=== PATIENT | female | born 1995 | race Caucasian/White ===

== ENCOUNTER 2018-02-14 03:25 | Inpatient (IN) | payer BC, OTHER ==
[~2018-02-14] VITALS: Ht 175.3 cm; Wt 67.4 kg
[~2018-02-14 03:25] MED LIST: Z.0.NO CURRENT MEDS
[2018-02-14 03:41] VITALS: BP 106/64; PULSE 85; RESP 18; TEMP 97; O2SAT 97
[2018-02-14 04:06] VITALS: BP 123/77; PULSE 90; RESP 12; TEMP 98.3; O2SAT 100
--- NOTE | 2018-02-14 04:28 | PD ---
HPI Chief Complaint: Alcohol/Drug Intoxication Time Seen by Provider: 04:04 Travel History International Travel<30 days: No Contact w/Intl Traveler<30days: No Traveled to known affect area: No History of Present Illness HPI 22-year-old white female presents emergency department under Jack act by PD. Patient states that she just moved back to [facility] over the last few days from [place]. She had been living in [place]. She had planned on moving back to [place] to be with her boyfriend and her mother. The mother states that she had not been answering her phone. She was concerned because she has a history of depression in the past and she had found notebooks depicting suicidal information as well as homicidal information. Patient states that she had written this down over a year ago and the mother had just found it. She denies any suicidal homicidal ideation. She states that she had left her mom's house in [place] to go to [facility] to meet up with her boyfriend. She denies any drugs. She admits to alcohol and tobacco. Denies . She states that she has been compliant with her medications. [facility] Past Medical History Narrative Medical Depression Hx Anticoagulant Therapy: No Cardiovascular Problems: No Chemotherapy: No Cerebrovascular Accident: No Diabetes: No Diminished Hearing: No Respiratory: No Immunizations Current: No Tetanus Vaccination: < 5 Years ?: Not Past Surgical History Surgical History: No Previous Surgery Hysterectomy: No Social History Alcohol Use: Yes (OCCASIONAL) Tobacco Use: Yes (OCCASIONAL) Substance Use: No Allergies-Medications (Allergen,Severity, Reaction): Coded Allergies: No Known Allergies (Verified , 01/05/13) Reported Meds & Prescriptions Reported Meds & Active Scripts Active Reported No Current Meds (Miscellaneous Medication) [facility] Review of Systems General / Constitutional: No: Fever Eyes: No: Visual changes HENT: No: Headaches Cardiovascular: No: Chest Pain or Discomfort Respiratory: No: Shortness of Breath Gastrointestinal: No: Abdominal Pain Genitourinary: No: Dysuria Musculoskeletal: No: Pain Skin: No Rash Neurologic: No: Weakness Psychiatric: No: Anxiety, Depression, Suicidal Ideations, Disorder of Thought, Mood Disorder, Substance Abuse, Homicidal Ideation Endocrine: No: Polydipsia Hematologic/Lymphatic: No: Easy Bruising Physical Exam Narrative GENERAL: Well-nourished, well-developed patient. SKIN: Warm and dry. HEAD: Normocephalic and atraumatic. EYES: No scleral icterus. No injection or drainage. ENT: No nasal drainage noted. Mucous membranes pink. Airway patent. NECK: Supple, trachea midline. Moves head freely without obvious discomfort. CARDIOVASCULAR: Regular rate and rhythm without murmurs, gallops, or rubs. RESPIRATORY: Breath sounds equal bilaterally. No accessory muscle use. GASTROINTESTINAL: Abdomen soft, non-tender, nondistended. EXTREMITIES: No cyanosis or edema. BACK: Nontender without obvious deformity. No CVA tenderness. NEURO: Patient is alert and oriented. no sensorimotor deficits. Nonfocal. Normal speech. PSYCH: No delusions. No auditory or visual hallucinations. Data Data Last Documented VS Vital Signs Date Time Temp Pulse Resp B/P (MAP) Pulse Ox O2 Delivery O2 Flow Rate FiO2 02/14/18 03:41 97.0 85 18 106/64 (78) 97 Orders Orders Complete Blood Count With Diff (02/14/18 03:46) Comprehensive Metabolic Panel (02/14/18 03:46) Psych Screen (02/14/18 03:46) Diet Regular Basic (02/14/18 Breakfast) Drug Screen, Random Urine (02/14/18 03:46) Alcohol (Ethanol) (02/14/18 03:46) Valproic Acid (Depakene) (02/14/18 03:46) Labs Laboratory Tests Test 02/14/18 03:35 White Blood Count 5.6 TH/MM3 Red Blood Count 4.38 MIL/MM3 Hemoglobin 13.4 GM/DL Hematocrit 38.8 % Mean Corpuscular Volume 88.6 FL Mean Corpuscular Hemoglobin 30.6 PG Mean Corpuscular Hemoglobin Concent 34.5 % Red Cell Distribution Width 13.0 % Platelet Count 275 TH/MM3 Mean Platelet Volume 7.8 FL Neutrophils (%) (Auto) 65.2 % Lymphocytes (%) (Auto) 25.3 % Monocytes (%) (Auto) 7.0 % Eosinophils (%) (Auto) 1.7 % Basophils (%) (Auto) 0.8 % Neutrophils # (Auto) 3.7 TH/MM3 Lymphocytes # (Auto) 1.4 TH/MM3 Monocytes # (Auto) 0.4 TH/MM3 Eosinophils # (Auto) 0.1 TH/MM3 Basophils # (Auto) 0.0 TH/MM3 CBC Comment DIFF FINAL Differential Comment Blood Urea Nitrogen 10 MG/DL Creatinine 0.62 MG/DL Random Glucose 83 MG/DL Total Protein 7.3 GM/DL Albumin 4.4 GM/DL Calcium Level 9.0 MG/DL Alkaline Phosphatase 92 U/L Aspartate Amino Transf (AST/SGOT) 8 U/L Alanine Aminotransferase (ALT/SGPT) 19 U/L Total Bilirubin 0.6 MG/DL Sodium Level 142 MEQ/L Potassium Level 3.6 MEQ/L Chloride Level 105 MEQ/L Carbon Dioxide Level 26.4 MEQ/L Anion Gap 11 MEQ/L Estimat Glomerular Filtration Rate 118 ML/MIN Valproic Acid (Depakene) Level LESS THAN 3 MCG/ML Ethyl Alcohol Level LESS THAN 3 MG/DL MDM Medical Decision Making Medical Screen Exam Complete: Yes Emergency Medical Condition: Yes Medical Record Reviewed: Yes Interpretation(s) Laboratory Tests Test 02/14/18 03:35 White Blood Count 5.6 TH/MM3 Red Blood Count 4.38 MIL/MM3 Hemoglobin 13.4 GM/DL Hematocrit 38.8 % Mean Corpuscular Volume 88.6 FL Mean Corpuscular Hemoglobin 30.6 PG Mean Corpuscular Hemoglobin Concent 34.5 % Red Cell Distribution Width 13.0 % Platelet Count 275 TH/MM3 Mean Platelet Volume 7.8 FL Neutrophils (%) (Auto) 65.2 % Lymphocytes (%) (Auto) 25.3 % Monocytes (%) (Auto) 7.0 % Eosinophils (%) (Auto) 1.7 % Basophils (%) (Auto) 0.8 % Neutrophils # (Auto) 3.7 TH/MM3 Lymphocytes # (Auto) 1.4 TH/MM3 Monocytes # (Auto) 0.4 TH/MM3 Eosinophils # (Auto) 0.1 TH/MM3 Basophils # (Auto) 0.0 TH/MM3 CBC Comment DIFF FINAL Differential Comment Blood Urea Nitrogen 10 MG/DL Creatinine 0.62 MG/DL Random Glucose 83 MG/DL Total Protein 7.3 GM/DL Albumin 4.4 GM/DL Calcium Level 9.0 MG/DL Alkaline Phosphatase 92 U/L Aspartate Amino Transf (AST/SGOT) 8 U/L Alanine Aminotransferase (ALT/SGPT) 19 U/L Total Bilirubin 0.6 MG/DL Sodium Level 142 MEQ/L Potassium Level 3.6 MEQ/L Chloride Level 105 MEQ/L Carbon Dioxide Level 26.4 MEQ/L Anion Gap 11 MEQ/L Estimat Glomerular Filtration Rate 118 ML/MIN Valproic Acid (Depakene) Level LESS THAN 3 MCG/ML Ethyl Alcohol Level LESS THAN 3 MG/DL Differential Diagnosis MDM: High Differential diagnoses: Schizophrenia, schizoaffective disorder, bipolar, anxiety, depression, adjustment reaction, mood disorder NOS, ODD, depressive disorder NOS, dementia, dementia with agitation, psychosis NOS, substance induced mood disorder, DMDD, Asperger syndrome, infection,electrolyte abnormality, malingering. Narrative Course Mental health screening discussed with the patient. Psychiatric screen ordered. The patient has been medically cleared. This is medical clearance for psychiatric admission Diagnosis Primary Impression: Medical clearance for psychiatric admission Disposition: 20 SENT TO MED EXAMINR Condition: Stable Ruben Solis Feb 14, 2018 04:28
[2018-02-14 04:43] LABS: AUTOMATED NEUTROPHIL # 3.7 TH/MM3 (1.8-7.7); BASOPHIL % 0.8 % (0.0-2.0); EOSINOPHIL # 0.1 TH/MM3 (0-0.4); EOSINOPHIL % 1.7 % (0.0-4.0); HEMATOCRIT 38.8 % (35.0-46.0); HEMOGLOBIN 13.4 GM/DL (11.6-15.3); LYMPH % 25.3 % (9.0-44.0); LYMPHOCYTE # 1.4 TH/MM3 (1.0-4.8); MEAN CELL VOLUME 88.6 FL (80.0-100.0); MEAN CORPUSCULAR HEMOGLOBIN 30.6 PG (27.0-34.0); MEAN CORPUSCULAR HGB CONC 34.5 % (32.0-36.0); MEAN PLATELET VOLUME 7.8 FL (7.0-11.0); MONOCYTE # 0.4 TH/MM3 (0-0.9); NEUT % 65.2 % (16.0-70.0); PLATELET COUNT 275 TH/MM3 (150-450); RED BLOOD COUNT 4.38 MIL/MM3 (4.00-5.30); WHITE BLOOD COUNT 5.6 TH/MM3 (4.0-11.0)
[2018-02-14 05:02] LABS: ALBUMIN 4.4 GM/DL (3.4-5.0); AST (GOT) 8 U/L (15-37); BICARBONATE 26.4 MEQ/L (21.0-32.0); BLOOD UREA NITROGEN 10 MG/DL (7-18); CHLORIDE 105 MEQ/L (98-107); CREATININE 0.62 MG/DL (0.50-1.00); GLOMERULAR FILTRATION RATE 118 ML/MIN (>89); GLUCOSE,RANDOM 83 MG/DL (74-106); SODIUM (NA) 142 MEQ/L (136-145)
[2018-02-14 05:03] LABS: ALT (GPT) 19 U/L (10-53)
[2018-02-14 05:05] LABS: ALKALINE PHOSPHATASE 92 U/L (45-117); TOTAL BILIRUBIN ADULT 0.6 MG/DL (0.2-1.0); TOTAL PROTEIN 7.3 GM/DL (6.4-8.2)
[2018-02-14] MEDS ORDERED: MAGNESIUM HYDROXIDE SUSP 30 ML CUP PO PRN (09:30)
[2018-02-14] MEDS ORDERED: LORazepam 2 MG/ML VIAL IM PRN ×2 (09:30)
[2018-02-14] MEDS ORDERED: ACETAMINOPHEN 325 MG TAB PO PRN (09:30)
[2018-02-14] MEDS ORDERED: LORazepam 0.5 MG TAB PO PRN (09:30)
[2018-02-14] MEDS ORDERED: ALUMINUM/MAGNESIUM/SIMETH 30 ML CUP PO PRN (09:30)
[2018-02-14] MEDS: NICOTINE 21 MG/24 HR PATCH T-DERMAL SCH (09:30)
[2018-02-14] MEDS ORDERED: LORazepam 1 MG TAB PO PRN (09:30)
[2018-02-14 11:32] VITALS: BP 106/65; PULSE 76; RESP 16; TEMP 97.5; O2SAT 98
[2018-02-14] MEDS: levETIRAcetam 500 MG TAB PO SCH ×2 (12:35→20:40)
[2018-02-14] MEDS: PALIPERIDONE ER 3 MG TAB PO SCH (12:35)
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
[2018-02-14 17:39] VITALS: BP 99/54; PULSE 79; RESP 18; TEMP 97.7; O2SAT 100
[2018-02-14] MEDS: REMOVE OLD NICODERM (NICOTINE) PATCH T-DERMAL SCH (20:12)
[2018-02-14 22:41] VITALS: BP 103/58; PULSE 72; RESP 18; O2SAT 100
[2018-02-15 06:17] VITALS: BP 103/56; PULSE 77; RESP 18; TEMP 98; O2SAT 100
[2018-02-15] MEDS: levETIRAcetam 500 MG TAB PO SCH ×2 (08:32→20:36)
[2018-02-15] MEDS: PALIPERIDONE ER 3 MG TAB PO SCH (08:32)
[2018-02-15] MEDS: NICOTINE 21 MG/24 HR PATCH T-DERMAL SCH (08:37)
[2018-02-15 09:44] LABS: BICARBONATE 25.4 MEQ/L (21.0-32.0); BLOOD UREA NITROGEN 9 MG/DL (7-18); CALCIUM 8.7 MG/DL (8.5-10.1); CHLORIDE 108 MEQ/L (98-107); CREATININE 0.71 MG/DL (0.50-1.00); GLOMERULAR FILTRATION RATE 101 ML/MIN (>89); GLUCOSE,RANDOM 81 MG/DL (74-106); SODIUM (NA) 144 MEQ/L (136-145); TRIGLYCERIDES 56 MG/DL (42-150)
[2018-02-15 09:51] LABS: CHOLESTEROL 131 MG/DL (120-200); CHOLESTEROL/ HDL RATIO 1.99 RATIO; HDL CHOLESTEROL 65.6 MG/DL (40.0-60.0); LDL CHOLESTEROL 54 MG/DL (0-99)
--- NOTE | 2018-02-15 14:41 | HHI.PYPN ---
Subjective Remarks Patient initially seen by Dr. Mack. Initial H&P done by him that reviewed and agreed with. I have finished the initial psychiatric admission template in the review of med reconciliation. Dr. aMck is done first opinion petition supporting Guero act. I agree patient meets criteria for involuntary psychiatric hospitalization thus I will cosign second opinion petition supporting Guero act. Patient seen by me with nurse Lily patient alert oriented though somewhat confused vigilant in the time giving contradictory statements. She is vague about auditory hallucinations. She is vague about continued suicidality. The stomach feel she does meet Jack criteria. Review of Systems Except as stated in HPI: all other systems reviewed are Neg Mental Status Examination Appearance: Appropriate Consciousness: Alert Orientation: x4 Motor Activity: Normal gait Speech: Unremarkable Language: Adequate Fund of Knowledge: Adequate Attention and Concentration: Adequate Memory: Unremarkable Mood: Oppositional, Irritable Affect: Flat Thought Process & Associations: Goal directed Thought Content: Bizarre thinking, Thought blocking, Delusional Hallucination Type: None Delusion Type: Paranoid Suicidal Ideation: No Suicidal Plan: No Suicidal Intention: No Homicidal Ideation: No Homicidal Plan: No Homicidal Intention: No Insight: Poor Judgment: Poor Results Labs Test 02/15/18 05:29 Blood Urea Nitrogen 9 MG/DL Creatinine 0.71 MG/DL Random Glucose 81 MG/DL Calcium Level 8.7 MG/DL Sodium Level 144 MEQ/L Potassium Level 3.7 MEQ/L Chloride Level 108 MEQ/L Carbon Dioxide Level 25.4 MEQ/L Anion Gap 11 MEQ/L Estimat Glomerular Filtration Rate 101 ML/MIN Triglycerides Level 56 MG/DL Cholesterol Level 131 MG/DL LDL Cholesterol 54 MG/DL HDL Cholesterol 65.6 MG/DL Cholesterol/HDL Ratio 1.99 RATIO Vitals/IOs Vital Signs Date Time Temp Pulse Resp B/P (MAP) Pulse Ox O2 Delivery O2 Flow Rate FiO2 02/15/18 06:17 98.0 77 18 103/56 (72) 100 Assessment & Plan Problem List: (1) Unspecified psychosis ICD Codes: F29 - Unspecified psychosis not due to a substance or known physiological condition Assessment & Plan Estimated LOS: 5-7 days patient meets criteria as cosign second opinion petition for Dr. Mack, we will continue the Invega orally. Justification for Cont. Inpt. At this time patient would decompensate a place a lower level of care Discharge Planning To be determined Misha Bellamy MD Feb 15, 2018 14:41
[2018-02-15 15:59] LABS: HEMOGLOBIN A1C 4.5 % (4.3-6.0)
[2018-02-15 17:47] VITALS: BP 95/54; PULSE 88; RESP 17; TEMP 97.8; O2SAT 100
[2018-02-15] MEDS: REMOVE OLD NICODERM (NICOTINE) PATCH T-DERMAL SCH (21:00)
[2018-02-15] MEDS ORDERED: diphenhydrAMINE HCL 50 MG CAP PO PRN (21:00)
[2018-02-16 06:25] VITALS: BP 116/59; PULSE 100; RESP 17; TEMP 97.7; O2SAT 98
[2018-02-16] MEDS: NICOTINE 21 MG/24 HR PATCH T-DERMAL SCH (09:00)
[2018-02-16] MEDS: levETIRAcetam 500 MG TAB PO SCH ×2 (09:00→20:27)
[2018-02-16] MEDS: PALIPERIDONE ER 3 MG TAB PO SCH (09:00)
--- NOTE | 2018-02-16 13:56 | HHI.PYPN ---
Subjective Remarks Patient was seen and case discussed with nursing. After initially having a long debate about the reason for her admission and her mother patient began with various delusional content. Patient has bizarre roman catholic beliefs where she is the "Divine feminine" and she has a [place]. This is an entity that is a match for her. She then says her father is an chato and a Pharoah from [place]. Patient says that he continues to talk to her. Mental Status Examination Appearance: Appropriate Consciousness: Alert Orientation: x4 Motor Activity: Normal gait Speech: Unremarkable Language: Adequate Fund of Knowledge: Adequate Attention and Concentration: Adequate Memory: Unremarkable Mood: Oppositional, Irritable Affect: Flat Thought Process & Associations: Goal directed Thought Content: Bizarre thinking, Thought blocking, Delusional Hallucination Type: Auditory (Her father) Delusion Type: Bizarre, Paranoid Suicidal Ideation: No Suicidal Plan: No Suicidal Intention: No Homicidal Ideation: No Homicidal Plan: No Homicidal Intention: No Insight: Poor Judgment: Poor Results Vitals/IOs Vital Signs Date Time Temp Pulse Resp B/P (MAP) Pulse Ox O2 Delivery O2 Flow Rate FiO2 02/16/18 06:25 97.7 100 17 116/59 (43) 98 Assessment & Plan Problem List: (1) Unspecified psychosis ICD Codes: F29 - Unspecified psychosis not due to a substance or known physiological condition Assessment & Plan Patient would decompensate in a less restrictive setting Justification for Cont. Inpt. Continue current treatment plan Jose Spear DO Feb 16, 2018 13:56
[2018-02-16 17:58] VITALS: BP 114/67; PULSE 90; RESP 18; TEMP 97.3; O2SAT 97
[2018-02-16] MEDS: REMOVE OLD NICODERM (NICOTINE) PATCH T-DERMAL SCH (20:27)
[2018-02-17 06:00] VITALS: BP 95/58; PULSE 92; RESP 17; TEMP 97.7; O2SAT 98
[2018-02-17] MEDS: NICOTINE 21 MG/24 HR PATCH T-DERMAL SCH (09:00)
[2018-02-17] MEDS: PALIPERIDONE ER 3 MG TAB PO SCH (09:11)
[2018-02-17] MEDS: levETIRAcetam 500 MG TAB PO SCH ×2 (09:11→21:04)
--- NOTE | 2018-02-17 12:07 | HHI.PYPN ---
Subjective Remarks Patient was seen and case discussed with nursing. Patient had a productive meeting with her mother yesterday. She appears less focused and angry at her. She describes future plans to move to [place] and get a job. Patient is grandiose and appears elated. Continues to have bizarre orthodox believes where her dad is a Pharoah. However, these bizarre delusions have to be elicited. She denies suicidal or homicidal ideation intent or plan Mental Status Examination Appearance: Appropriate Consciousness: Alert Orientation: x4 Motor Activity: Normal gait Speech: Unremarkable Language: Adequate Fund of Knowledge: Adequate Attention and Concentration: Adequate Memory: Unremarkable Mood: Oppositional, Irritable Affect: Other (Elated) Thought Process & Associations: Goal directed Thought Content: Bizarre thinking, Delusional Hallucination Type: Auditory (Her father) Delusion Type: Bizarre, Paranoid Suicidal Ideation: No Suicidal Plan: No Suicidal Intention: No Homicidal Ideation: No Homicidal Plan: No Homicidal Intention: No Insight: Poor Judgment: Poor Results Labs Test 02/16/18 21:29 Urine Opiates Screen NEG Urine Barbiturates Screen NEG Urine Amphetamines Screen NEG Urine Benzodiazepines Screen NEG Urine Cocaine Screen NEG Urine Cannabinoids Screen NEG Vitals/IOs Vital Signs Date Time Temp Pulse Resp B/P (MAP) Pulse Ox O2 Delivery O2 Flow Rate FiO2 02/17/18 06:00 97.7 92 17 95/58 (70) 98 Assessment & Plan Problem List: (1) Unspecified psychosis ICD Codes: F29 - Unspecified psychosis not due to a substance or known physiological condition Assessment & Plan Continue current treatment plan Justification for Cont. Inpt. Patient would decompensate in a less restrictive setting Jose Spear DO Feb 17, 2018 12:07
[2018-02-17 17:20] VITALS: BP 88/54; PULSE 69; RESP 17; TEMP 98.2
[2018-02-17] MEDS: REMOVE OLD NICODERM (NICOTINE) PATCH T-DERMAL SCH (21:00)
[2018-02-18 06:27] VITALS: BP 95/59; PULSE 84; RESP 18; TEMP 97.4; O2SAT 96
[2018-02-18] MEDS: NICOTINE 21 MG/24 HR PATCH T-DERMAL SCH (09:00)
[2018-02-18] MEDS: PALIPERIDONE ER 3 MG TAB PO SCH (09:04)
[2018-02-18] MEDS: levETIRAcetam 500 MG TAB PO SCH ×2 (09:04→21:00)
--- NOTE | 2018-02-18 11:08 | HHI.PYPN ---
Subjective Remarks Patient is seen today with nurse Lily, chart reviewed, patient compliant medications patient continues somewhat disorganized and loose vaguely delusional and grandiose in his type of the leg. She appears as somewhat conflictual ideation related to her mother. We will increase in Aragon 6 mg daily Review of Systems Except as stated in HPI: all other systems reviewed are Neg Mental Status Examination Appearance: Appropriate Consciousness: Alert Orientation: x4 Motor Activity: Normal gait Speech: Unremarkable Language: Adequate Fund of Knowledge: Adequate Attention and Concentration: Adequate Memory: Unremarkable Mood: Oppositional, Irritable Affect: Other (Elated) Thought Process & Associations: Goal directed Thought Content: Bizarre thinking, Delusional Hallucination Type: Auditory (Her father) Delusion Type: Bizarre, Paranoid Suicidal Ideation: No Suicidal Plan: No Suicidal Intention: No Homicidal Ideation: No Homicidal Plan: No Homicidal Intention: No Insight: Poor Judgment: Poor Results Vitals/IOs Vital Signs Date Time Temp Pulse Resp B/P (MAP) Pulse Ox O2 Delivery O2 Flow Rate FiO2 02/18/18 06:27 97.4 84 18 95/59 (71) 96 Assessment & Plan Problem List: (1) BRIEF PSYCHOTIC DISORDER ICD Codes: F23 - BRIEF PSYCHOTIC DISORDER Assessment & Plan Estimated LOS: days patient continues psychotic Justification for Cont. Inpt. At this time patient would decompensate if placed in a lower level of care Misha Bellamy MD Feb 18, 2018 11:08
[2018-02-18 18:27] VITALS: BP 113/55; PULSE 71; RESP 16; TEMP 97.6; O2SAT 100
[2018-02-18] MEDS: REMOVE OLD NICODERM (NICOTINE) PATCH T-DERMAL SCH (21:00)
[2018-02-19 05:57] VITALS: BP 98/50; PULSE 68; RESP 16; TEMP 97; O2SAT 99
[2018-02-19] MEDS: levETIRAcetam 500 MG TAB PO SCH ×2 (08:15→21:04)
[2018-02-19] MEDS: PALIPERIDONE ER 3 MG TAB PO SCH (08:15)
[2018-02-19] MEDS: NICOTINE 21 MG/24 HR PATCH T-DERMAL SCH (08:16)
--- NOTE | 2018-02-19 15:27 | HHI.PYPN ---
Subjective Remarks Patient seen in her room with nurse Claribel, chart reviewed, patient compliant medication. Patient continues somewhat diffusely confused with vague thought blocking, still very little insight into her disease. Staff states they have talked with patient's mother who stated patient has shown noncompliance with medications once discharged from the hospital. We will need to consider possible addition Review of Systems Except as stated in HPI: all other systems reviewed are Neg Mental Status Examination Appearance: Appropriate Consciousness: Alert Orientation: x4 Motor Activity: Normal gait Speech: Unremarkable Language: Adequate Fund of Knowledge: Adequate Attention and Concentration: Adequate Memory: Unremarkable Mood: Oppositional, Irritable Affect: Other (Elated) Thought Process & Associations: Goal directed Thought Content: Bizarre thinking, Delusional Hallucination Type: Auditory (Her father) Delusion Type: Bizarre, Paranoid Suicidal Ideation: No Suicidal Plan: No Suicidal Intention: No Homicidal Ideation: No Homicidal Plan: No Homicidal Intention: No Insight: Poor Judgment: Poor Results Vitals/IOs Vital Signs Date Time Temp Pulse Resp B/P (MAP) Pulse Ox O2 Delivery O2 Flow Rate FiO2 02/19/18 05:57 97.0 68 16 98/50 (66) 99 Intake and Output 02/19/18 02/19/18 02/19/18 07:59 15:59 23:59 Intake Total 360 ml Balance 360 ml Assessment & Plan Problem List: (1) BRIEF PSYCHOTIC DISORDER ICD Codes: F23 - BRIEF PSYCHOTIC DISORDER Assessment & Plan Estimated LOS: days patient remains psychotic and somewhat delusional, complaint medications Justification for Cont. Inpt. At this time patient would decompensate a place to a lower level of care Discharge Planning To be determined Request HC Surrog/Guard Advoc?: No Misha Bellamy MD Feb 19, 2018 15:27
[2018-02-19 18:26] VITALS: BP 98/56; PULSE 77; RESP 17; TEMP 97.9; O2SAT 98
[2018-02-19] MEDS: REMOVE OLD NICODERM (NICOTINE) PATCH T-DERMAL SCH (21:00)
[2018-02-20 05:54] VITALS: BP 103/53; PULSE 90; RESP 16; TEMP 97.8; O2SAT 99
[2018-02-20] MEDS: levETIRAcetam 500 MG TAB PO SCH ×2 (08:34→20:55)
[2018-02-20] MEDS: NICOTINE 21 MG/24 HR PATCH T-DERMAL SCH (08:35)
[2018-02-20] MEDS: PALIPERIDONE ER 3 MG TAB PO SCH (08:35)
--- NOTE | 2018-02-20 12:58 | HHI.PYPN ---
Subjective Remarks Patient seen in her room with nurse Rimma, chart reviewed, patient complaint medications. Patient calm and focused with me patient scheduled for Jack court tomorrow. At this time patient has the capacity to sign voluntary will lift Jack, patient signed voluntary. While patient continues somewhat vigilant she is overall pleasant no behavior problem for now continue treatment Review of Systems Except as stated in HPI: all other systems reviewed are Neg Mental Status Examination Appearance: Appropriate Consciousness: Alert Orientation: x4 Motor Activity: Normal gait Speech: Unremarkable Language: Adequate Fund of Knowledge: Adequate Attention and Concentration: Adequate Memory: Unremarkable Mood: Oppositional, Irritable Affect: Other (Elated) Thought Process & Associations: Goal directed Thought Content: Bizarre thinking, Delusional Hallucination Type: Auditory (Her father) Delusion Type: Bizarre, Paranoid Suicidal Ideation: No Suicidal Plan: No Suicidal Intention: No Homicidal Ideation: No Homicidal Plan: No Homicidal Intention: No Insight: Poor Judgment: Poor Results Vitals/IOs Vital Signs Date Time Temp Pulse Resp B/P (MAP) Pulse Ox O2 Delivery O2 Flow Rate FiO2 02/20/18 05:54 97.8 90 16 103/53 (70) 99 Assessment & Plan Problem List: (1) BRIEF PSYCHOTIC DISORDER ICD Codes: F23 - BRIEF PSYCHOTIC DISORDER Assessment & Plan Estimated LOS: days patient somewhat calmer more focused today now denies voices or visions. Appears less distracted. At this time for patient has capacity will lift Jack act low patient signed voluntary Justification for Cont. Inpt. At this time patient would decompensate a place to the lower level of care Discharge Planning To be determined Request HC Surrog/Guard Advoc?: No Misha Bellamy MD Feb 20, 2018 12:58
[2018-02-20 15:32] VITALS: BP 96/52; PULSE 82; RESP 18; TEMP 97.9; O2SAT 99
[2018-02-20] MEDS: hydrOXYzine HCL 50 MG TAB PO PRN (18:22)
[2018-02-20] MEDS: REMOVE OLD NICODERM (NICOTINE) PATCH T-DERMAL SCH (20:55)
[2018-02-21 06:00] VITALS: BP 88/55; PULSE 86; RESP 16; TEMP 97.7; O2SAT 100
[2018-02-21] MEDS: PALIPERIDONE ER 3 MG TAB PO SCH (09:00)
[2018-02-21] MEDS: levETIRAcetam 500 MG TAB PO SCH ×2 (09:00→21:37)
[2018-02-21] MEDS: NICOTINE 21 MG/24 HR PATCH T-DERMAL SCH (09:00)
--- NOTE | 2018-02-21 16:33 | HHI.PYPN ---
Subjective Remarks Patient is seen in her room with nurse Herber, chart reviewed, patient compliant medications, patient discussed with nurse. Patient calm cooperative pleasant with me, denies suicidality homicidality voices or visions. States she has plans to work with the mother to get her own apartment the locally or perhaps down towards [facility]. Patient states she wishes to be discharged and will be willing to go stay with her mother and throat plans can be finalized Review of Systems Except as stated in HPI: all other systems reviewed are Neg Mental Status Examination Appearance: Appropriate Consciousness: Alert Orientation: x4 Motor Activity: Normal gait Speech: Unremarkable Language: Adequate Fund of Knowledge: Adequate Attention and Concentration: Adequate Memory: Unremarkable Mood: Oppositional, Irritable Affect: Other (Elated) Thought Process & Associations: Goal directed Thought Content: Bizarre thinking, Delusional Hallucination Type: Auditory (Her father) Delusion Type: Bizarre, Paranoid Suicidal Ideation: No Suicidal Plan: No Suicidal Intention: No Homicidal Ideation: No Homicidal Plan: No Homicidal Intention: No Insight: Poor Judgment: Poor Results Vitals/IOs Vital Signs Date Time Temp Pulse Resp B/P (MAP) Pulse Ox O2 Delivery O2 Flow Rate FiO2 02/21/18 06:00 97.7 86 16 88/55 (99) 100 Assessment & Plan Problem List: (1) BRIEF PSYCHOTIC DISORDER ICD Codes: F23 - BRIEF PSYCHOTIC DISORDER Assessment & Plan Estimated LOS: days patient continues to improve, now denies voices or visions suicidality homicidality. The patient continues to improve consider discharge within 24-36 hours Justification for Cont. Inpt. At this time patient would decompensate a place to a lower level of care Discharge Planning Possible return with mother while other arrangements are made Request HC Surrog/Guard Advoc?: No Misha Bellamy MD Feb 21, 2018 16:33
[2018-02-21 17:57] VITALS: BP 101/52; PULSE 74; RESP 18; TEMP 98.2; O2SAT 99
[2018-02-21] MEDS: hydrOXYzine HCL 50 MG TAB PO PRN (20:00)
[2018-02-21] MEDS: REMOVE OLD NICODERM (NICOTINE) PATCH T-DERMAL SCH (21:00)
[2018-02-22 06:43] VITALS: BP 94/53; PULSE 86; RESP 16; TEMP 97.6; O2SAT 97
[2018-02-22] MEDS: NICOTINE 21 MG/24 HR PATCH T-DERMAL SCH (09:00)
[2018-02-22] MEDS: levETIRAcetam 500 MG TAB PO SCH (09:06)
[2018-02-22] MEDS: PALIPERIDONE ER 3 MG TAB PO SCH (09:06)
[2018-02-22] MEDS ORDERED: INVE3TAB2 PO (14:14)
[2018-02-22] MEDS ORDERED: LEVE500 PO (14:14)
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
== END 2018-02-22 16:30 | disposition home or self-care (01) | DRG 885 ==
LOC: NEPD 03:25 → NEDA 09:27 → H270 11:15 → H260 02-18 10:45
PROVIDERS: ADMIT Psychiatry & Neurology Psychiatry; ATTEND Psychiatry & Neurology Psychiatry
DX: F23 Brief psychotic disorder (principal)
CPT/HCPCS: 80048; 80053; 80061; 80164; 80307; 83036; 85025; 99285; Q0163